=== PATIENT | male | born 1940 | race Caucasian/White ===

== ENCOUNTER 2020-04-12 08:22 | Day surgery (SDC) | payer OTHER ==
--- NOTE | 2020-04-07 15:03 | RAD REPORT ---
EXAM DESCRIPTION: RAD - Chest Pa And Lat (2 Views) - 04/07/2020 2:51 pm CLINICAL HISTORY: pre op Chest pain. COMPARISON: No comparisons FINDINGS: Small calcified granuloma is present left lung base. The lungs are otherwise clear. The he art is normal in size. No displaced fractures.
[2020-04-07 15:22] LABS: Absolute Lymphocytes (CBC) 1.3 K/uL (0.7-4.9); Basophils % 0.9 % (0-1.3); Hematocrit 43.8 % (39.6-49.0); Lymphocytes % 13.8 % (15.3-44.8); MPV 10.4 fL (7.6-11.3); RBC Red Blood Cell Count 4.72 M/uL (4.33-5.43)
[2020-04-07 15:23] LABS: Potassium 4.3 mmol/L (3.5-5.1)
[~2020-04-12 08:22] MED LIST: AMPICILLIN SODIUM 2 GM in NA CHLORIDE 0.9% 100 ML IVPB SCH; Gentamicin Inj 160 MG in NA CHLORIDE 0.9% 100 ML IV SCH
[2020-04-12] MEDS ORDERED: GEMCITABINE HCL 1,000 MG in NA CHLORIDE 0.9% 26.3 ML IVPB ONE (08:45)
[2020-04-12] MEDS ORDERED: GEMCITABINE HCL IVPB ONE (08:45)
[2020-04-12] MEDS ORDERED: NA CHLORIDE 0.9% IVPB ONE (08:45)
[2020-04-12] MEDS ORDERED: NA CHLORIDE 0.9% 1,000 ML ONE ×2 (09:39→13:16)
[2020-04-12] MEDS ORDERED: LIDOCAINE 1% MPF 5 ML VIAL ONE (10:12)
[2020-04-12] MEDS ORDERED: propofoL 200 MG/20 ML VIAL IV ONE (10:12)
[2020-04-12] MEDS ORDERED: FENTANYL CITR 100 MCG/2 ML ONE ×2 (10:12→12:06)
[2020-04-12] MEDS ORDERED: ONDANSETRON 4 MG/2 ML VIAL ONE (10:13)
[2020-04-12] MEDS ORDERED: ROCURONIUM 50 MG/5 ML VIAL IV ONE (12:06)
[2020-04-12] MEDS ORDERED: EPHEDRINE SULF 50 MG/ML VIAL ONE (12:06)
[2020-04-12] MEDS ORDERED: GLYCOPYRROLATE 0.2 MG/ML SYR ONE ×2 (13:27)
[2020-04-12] MEDS ORDERED: NEOSTIGMINE 1 MG/ML -5 ML ONE (13:30)
[2020-04-12] MEDS ORDERED: OPIUM/BELLADONNA SUPPOS (30-16.2 MG) PR ONE (13:43)
[2020-04-12] MEDS ORDERED: PHENAZOPYRIDINE 100MG TAB PO ONE (13:48)
[2020-04-12] MEDS ORDERED: HYDROCODONE/APAP 5/325 MG TAB PO PRN (13:48)
[2020-04-12 13:59] LABS: Absolute Lymphocytes (CBC) 1.4 K/uL (0.7-4.9); Basophils % 0.6 % (0-1.3); Hematocrit 42.7 % (39.6-49.0); Lymphocytes % 14.9 % (15.3-44.8); MPV 10.1 fL (7.6-11.3); RBC Red Blood Cell Count 4.57 M/uL (4.33-5.43)
--- NOTE | 2020-04-12 15:31 | OP ---
Surgeon: ZAIN ODOM Preoperative Diagnosis: Bladder tumor, massive. 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 Principle Procedures: Cystoscopy and transurethral resection of a bladder tumor greater than 7-10 cm . Instillation of intravesical gemcitabine chemotherapy. Indication For Procedure: Mr. Kirkpatrick presented to the Urology Clinic after a period of gross hematur ia and was evaluated with cystoscopy revealing the presence of the left lateral wall bladder tumor. The ureteral orifice was not perceptible on that examination and he presents today for definitive man agement and resection of the bladder tumor as well as staging. Procedure In Detail: The patient was consented in the preoperative holding area before being transfe rred to the operative suite where general anesthesia was induced. He was given ampicillin and gentam icin IV antimicrobial prophylaxis, pneumo boots were provided for DVT prophylaxis. The patient was t hen placed in the lithotomy position, padded and secured to the table appropriately. His genitalia w ere prepped using Hibiclens and he was draped in standard fashion. The case was begun using urethral sounds to dilate the meatus and fossa navicularis to 30-Omani. I then was able to pass the 26-Fren ch resectoscope using the visual obturator via the urethra and into the bladder with ease. There wer e no urethral mucosal lesions noted other than a small frondular lesion within the prostatic urethra. The bladder was then entered and surveyed. The tumor was indeed massive involving the entire later al left lateral wall of the bladder. The ureteral orifice was not visible due to overgrowth of the t umor in that region. The tumor was much greater than 7-10 cm in diameter and extended from near the bladder neck to posterior from the trigone to the dome. As such, additionally there was significant neovascularization noted with massive blood vessels bulging within the bladder and feeding the tumor at the base near the bladder neck and trigone region. Resection was thus begun to attempt to debulk the tumor superficially, and after extensive debulking, which was sent as level 1 bladder resection, I then proceeded to further resect down to the base of the tumor more peripherally. This was sent as level 2 dissection using Ellik evacuation to remove the tumor pieces. Continued resection alternati ng with fulguration as necessary given the extensive bleeding from the frank-vascularized tumor was und ertaken. After over an hour and a half of resection with alternating Ellik evacuation of the tumor a nd blood clot from the bladder in order to maintain visualization, a superficial bladder perforation was noted posteriorly from the Ellik causing sucking of the mucosa into the scope and therefore disru pting it. As a result, while no fat was visible, to avoid absorption of a significant quantity of fl uid, the procedure was then limited to an additional 30 minutes. As a result, an additional level 3 resection of tumor was performed and sent for pathologic analysis before fulguration was performed to cease any active bleeding. All remaining tumor chips were removed from the bladder without any claudia tional Ellik evacuation after the perforation was noted, and in the end, the area was hemostatic and about half of the tumor inferiorly had been resected. The tumor in the opening of the ureteral orifi ce was not managed on this excursion. I then placed a 22-Omani [address] Carias catheter into his bladde r and decompressed the fluid and urine. I then instilled 2 g of gemcitabine in 50 cc normal saline i nto his decompress bladder to minimize tumor cell implantation and decrease extravasation into the ex travesical space of any tumor cells. The gemcitabine was then left intravesically and the catheter w as clamped, connected to a leg bag. The patient was then taken out of the lithotomy position, awaken ed from general anesthesia, transferred to a stretcher, and then transferred to the recovery room in good condition. Complications: Superficial bladder perforation where fat was not visible. Discharge Disposition: We will leave the intravesical gemcitabine for no more than 45 minutes to 1 h our and remove it if the patient becomes extensively symptomatic as we would like to avoid any bladde r spasms. Belladonna and opium suppository were provided per rectum for postoperative anesthetic. T he patient will then be discharged with a Carias catheter in place after the chemotherapy is evacuated , and he will maintain it for the next 5-7 days before voiding trial is planned in the clinic. He wi ll continue the levofloxacin antimicrobial therapy started yesterday. Subsequent followup discussion will take place in approximately 2 weeks once the pathology is available to discuss next steps with my clinical impression being this is indeed a muscle invasive tumor for which either a cystectomy or at minimum a bladder sparing approach will be required. USMAN/MODL Voice ID: [id number] Report ID: [id number]
[2020-04-12 15:43] VITALS: BP 172/63; TEMP 97; O2SAT 98
--- OUTSIDE RECORDS SUMMARY | 2020-04-13 03:38 | XMS REPORT | Continuity of Care Document ---
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, infarct, 7-17 Method i old old 00:00: st 00 SOB SOB Disease Active [place] (shortness (shortness 6-12 Me thodi of breath) of breath) 00:00: st 00 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 6-12 Method[facility] artery artery 00:00: st disease disease 00 Coronary Coronary Disease Active [place] artery artery 6-13 [facility] disease disease 00:00: st involving involving 00 fl[place]reau flandreau coronary coronary artery of artery of flandreau flandreau heart heart without without angina angina pectoris pectoris Bilateral Bilateral Disease Active 2015-03 [place] [facility] carotid carotid 2-13 Methodi artery artery 00:00: st stenosis stenosis 00 Coronary Coronary Disease Active 2015-03 [place] artery artery 04-16 Method[facility] disease disease 00:00: st involving involving 00 flandreau flandreau heart heart without without angina angina pectoris pectoris Coronary Coronary Disease Active 2015-03 [place] arterioscl arterioscl 03-12 Me [facility] erosis erosis 00:00: st 00 Essential Essential Disease Active 2015-03 [place] el[place] hypertensi hypertensi 03-12 Me thodi on on 00:00: st 00 Presence Presence Disease Active 2015-03 [place] of stent of stent 03-12 Method i in in 00:00: st coronary coronary 00 artery artery Peripheral Peripheral Disease Active 2015-03 [place] vascular vascular 03-12 Method i disease disease 00:00: st 00 Allergies, Adverse Reactions, Alerts Allergy Allergy Status Severity Reaction(s) Onset Inactive Treating Comm ents Source Name Type Date Date Clinician Clopidog Propensi Active 2015-03 Dorito n rel ty to 03-12 Methodi adverse 00:00: st reaction 00 s to drug Sulfa Propensi Active 2015-03 [place] (Sulfona ty to 03-12 Methodi mide adverse 00:00: st Antibiot reaction 00 ics) s to drug Sulfa Adverse Active Info Not [facility] Reaction Available [facility] Family History Family Member Diagnosis Comments Start Date Stop Date Source Natural father Heart attack [place] Caodaism Natural mother Cancer [facility] thodist Other Coronary artery [facility] ethodist disease Social History Social Habit Start Date Stop Date Quantity Comments Source Sex Assigned At [facility] ethodist Exposure to Not sure [place] Metho dist SARS-CoV-2 (event) Tobacco use and 2019-02-10 2019-02-10 Never used [facility] ethodist exposure 00:00:00 00:00:00 Alcohol intake 2019-02-10 2019-02-10 Current [facility] thodist 00:00:00 00:00:00 non-drinker of alcohol (finding) Smoking Status Start Date Stop Date Source Never smoker [place] Araidneis t Medications Ordered Filled Start Stop Current Ordering Indication Dosage Frequency Signature Comments Components Source Medication Medication Date Date Medication? Clinician (SIG) Name Name losartan-hy 2020-0 2021- Yes Bilateral 1{tbl} QD TAKE 1 [place] drochloroth 04-04 carotid TABLET BY Phillip iazide 00:00: 23:[address] (HYZAAR) 00 :00 disease DAILY 100-12.5 mg (HCC) per tablet metoprolol 2019-03 Yes Bilateral TAKE 1 [place] tartrate 2-07 carotid TABLET(50 Met h[place] (LOPRESSOR) 00:00: artery MG) BY st 50 mg 00 disease MOUTH tablet (HCC) TWICE DAILY simvastatin 2019-03 Yes TAKE 1 [place] (ZOCOR) 20 1-16 TABLET(20 Meth lino mg tablet 00:00: MG) BY st 00 MOUTH EVERY NIGHT losartan-hy 2019-03- No Bilateral 1{tbl} QD TAKE 1 [place] drochloroth 1-06 02- carotid TABLET BY Methodi iazide 00:00: 00:[address] (HYZAAR) 00 :00 disease DAILY 100-12.5 mg (HCC) per tablet metoprolol 2019- No Bilateral TAKE 1 [place] tartrate 9-10 12-07 carotid TABLET(50 Me thodi (LOPRESSOR) 00:00: 00:00 artery MG) BY s t 50 mg 00 :00 disease MOUTH tablet (HCC) TWICE DAILY simvastatin 2019- No TAKE 1 [place] (ZOCOR) 20 8-21 11-16 TABLET(20 Met hodi mg tablet 00:00: 00:00 MG) BY st 00 :00 MOUTH EVERY NIGHT losartan-hy 2019- No Bilateral 1{tbl} QD TAKE 1 [place] drochloroth 8- 11-06 carotid TABLET BY Methodi iazide 00:00: 00:[address] (HYZAAR) 00 :00 disease DAILY 100-12.5 mg (HCC) per tablet metoprolol 2019- No Bilateral TAKE 1 [place] tartrate 6-15 09-10 carotid TABLET(50 Me thodi (LOPRESSOR) 00:00: 00:00 artery MG) BY s t 50 mg 00 :00 disease MOUTH tablet (HCC) TWICE DAILY simvastatin 2019- No TAKE 1 [place] (ZOCOR) 20 5-26 08-21 TABLET(20 Met hodi mg tablet 00:00: 00:00 MG) BY st 00 :00 MOUTH EVERY NIGHT losartan-hy 2019- No Bilateral 1{tbl} QD TAKE 1 [place] drochloroth 5-08 08-03 carotid TABLET BY Methodi iazide 00:00: 00:[address] (HYZAAR) 00 :00 disease DAILY 100-12.5 mg (HCC) per tablet metoprolol 2019- No Bilateral TAKE 1 Luis A tartrate 3-19 06-15 carotid TABLET(50 Me thodi (LOPRESSOR) 00:00: 00:00 artery MG) BY s t 50 mg 00 :00 disease MOUTH tablet (HCC) TWICE DAILY simvastatin 2019- No TAKE 1 [place] el[place] (ZOCOR) 20 2- 05-26 TABLET(20 Met hodi MG tablet 00:00: 00:00 MG) BY st 00 :00 MOUTH EVERY NIGHT losartan-hy 2019- No Bilateral 1{tbl} QD TAKE 1 Luis A drochloroth 2- 05-08 carotid TABLET BY Methodi iazide 00:00: 00:[address] (HYZAAR) 00 :00 disease DAILY 100-12.5 mg (HCC) per tablet metoprolol 2018-03- No Bilateral TAKE 1 Luis A tartrate 2- 03-19 carotid TABLET(50 Me thodi (LOPRESSOR) 00:00: 00:00 artery MG) BY s t 50 mg 00 :00 disease MOUTH tablet (HCC) TWICE DAILY aspirin 2018-03 Yes Take 1 Luis A (ECOTRIN) 2-10 tablet Methodi 81 MG 10:18: every day st enteric 25 by oral coated route. tablet multivit-mi 2018-03 Yes One Tab [place] n-FA-lycope 2-10 Daily Methodi n-lutein 10:18: st (CENTRUM 25 SILVER) 0.4-300-250 mg-mcg-mcg tablet magnesium 2018-03 Yes Take 1 [place] 250 mg 2-10 tablet as Methodi tablet 10:18: needed by st 25 oral route. famotidine- 2018-03 Yes As Needed [place] Ca carb-mag 2-10 Methodi hydrox 10:18: st (PEPCID 25 COMPLETE) 10-800-165 mg chewable tablet acetaminoph 2018-03 Yes 500mg Take 500 [place] en 2-10 mg by Methodi (TYLENOL) 10:18: mouth as st 500 MG 25 needed for tablet mild pain. calcium 2018-03 Yes Chew. Luis A carbonate 2-10 Methodi (calcium 10:18: st carbonate) 25 400 mg (1,000 mg) tablet,chew able simvastatin 2018-03- No TAKE 1 [place] (ZOCOR) 20 2-05-01 TABLET(20 Met hodi MG tablet 00:00: 00:00 MG) BY st 00 :00 MOUTH EVERY NIGHT losartan-hy 2018-03- No Bilateral 1{tbl} QD TAKE 1 [place] drochloroth 03-15 02 carotid TABLET BY Methodi iazide 00:00: 00:[address] (HYZAAR) 00 :00 disease DAILY 100-12.5 mg (HCC) per tablet azelastine Yes [place] (ASTELIN) 610 Methodi 137 mcg 00:00: st (0.1 %) 00 nasal spray montelukast Yes TK 1 T PO [place] (SINGULAIR) 528 QD Methodi 10 mg 00:00: st tablet 00 metFORMIN Yes TK 1 T PO [place] (GLUCOPHAGE 4-16 BID WAC Metho di ) 500 mg 00:00: st tablet 00 Metformin Metformin Yes Pj [address] [facility] [address] HCl HCl 1-17 [place] with a [facility] - 00:00: meal [facility] VIAGRA 50 2015-03 Yes TK 1 T PO [place] [facility] mg tablet 1-20 QD Methodi 00:00: st 00 Flonase Flonase Yes Pj 1 spray [address] [facility] each [facility] - nostril [facility] Nasacort Nasacort Yes Pj [address] [facility] Allergy Allergy [place] each [facility] - 24HR 24HR nostril [facility] Simvastatin Simvastatin Yes Pj [address] [facility] [address] [place] in the [facility] - evening [facility] ent Clinics Centrum Centrum Yes Pj not [facility] Silver Silver [place] defined [facility] Tums Tums Yes Pj [address] [facility] [address] [place] [facility] Aspir-81 Aspir-81 Yes Pj [address] [facility] [facility] Loratadine Loratadine Yes Pj [address] [place] [facility] Pepcid Pepcid Yes Pj 1 tablet [facility] Complete Complete [place] as needed [facility] - [facility] Metoprolol Metoprolol Yes Pj [address] Tartrate Tartrate [place] with food L ukes - [facility] Losartan Losartan Yes Pj [address] Potassium-H Potassium-H [place] [facility] Azelastine Azelastine Yes Pj [address] HCl HCl [place] [facility] Ipratropium Ipratropium Yes Pj [address] [facility] [facility] [employer] [place] in each [facility] - nostril [facility] Metformin Metformin Yes Pj TAKE [address] HCl HCl [place] TABLET BY [facility] MEAL [facility] Clinics Immunizations Ordered Filled Immunization Date Status Comments [facility] e Immunization Name Name PFIZER COVID-19 2020-03-23 Completed Luis A Rao ethodist MRNA VACCINATION 00:00:00 FluAD FluAD 2018-12-[address] [facility]00 [facility] Vital Signs Vital Name Observation Time Observation Value Comments Source Systolic blood 2020-02-09 09:19:00 193 mm[Hg] Martin n Caodaism pressure Diastolic blood 2020-02-09 09:19:00 79 mm[Hg] Bobbi ferguson Caodaism pressure Heart rate 2020-02-09 09:19:00 57 /min Luis A Stringer Body height 2020-02-09 09:19:00 182.9 cm Luis A Stringer Body weight 2020-02-09 09:19:00 99.338 kg Luis A Stringer BMI 2020-02-09 09:19:00 29.70 kg/m2 Luis A Stringer Procedures This patient has no known procedures. Plan of Care Planned Activity Planned Date Details Comments Source Future Scheduled 2020-04-13 COVID-19 VACCINE (2 of [place] Ca[facility] Test 00:00:00 2 - Pfizer series) [code = COVID-19 VACCINE (2 of 2 - Pfizer series)] Future Scheduled 2019-10-03 INFLUENZA VACCINE [place] [facility] Test 00:00:00 [code = INFLUENZA VACCINE] Future Scheduled 2004-06-26 65+ PNEUMOCOCCAL [place] Caodaism Test 00:00:00 VACCINE (1 of 1 - PPSV23) [code = 65+ PNEUMOCOCCAL VACCINE (1 of 1 - PPSV23)] Future Scheduled 1989-06-26 SHINGLES VACCINES (#1) [place] [facility] Test 00:00:00 [code = SHINGLES VACCINES (#1)] Future Scheduled 1949-06-26 DIABETES: RETINAL EYE [place] [facility] Test 00:00:00 EXAM [code = DIABETES: RETINAL EYE EXAM] Future Scheduled 1949-06-26 DIABETIC FOOT EXAM [place] [facility] Test 00:00:00 [code = DIABETIC FOOT EXAM] Future Scheduled 1949-06-26 URINE MICROALBUMIN [place] [facility] Test 00:00:00 [code = URINE MICROALBUMIN] Encounters Start End Encounter Admission Attending Care Care Encounter Source Date/Time Date/Time Type Type Clinicians Facility Department ID 2020-03-28 2020-03-28 [id number] 2020-03-23 2020-03-23 Outpatient [facility] [id number] 084 [place] 00:00:00 00:00:[address] 2020-03-22 2020-03-22 [facility] [id number] [facility] 2020-03-22 2020-03-22 [facility] [id number] [facility] 2020-02-25 2020-02-25 Outpatient [facility] [id number] [facility] 2020-02-15 2020-02-15 [facility] [id number] [facility] 2020-02-09 2020-02-09 Outpatient [facility] [id number] 994 [place] 00:00:00 00:00:[address] ZU[address] 2019-12-21 2019-12-21 Outpatient [facility] [id number] [facility] 2019-12-14 2019-12-14 [facility] [id number] [facility]00 [facility] 2019-09-17 2019-09-17 [facility] [id number] 08:15:00 08:15:00 [employer] - Absolute Antibody [facility] Medicine Outpati ent Clinics 2019-08-14 2019-08-14 Outpatient [facility] [id number] 614 [place] 00:00:00 00:00:00 ZULEYMA [address] 2019-06-18 2019-06-18 [facility] [id number] 09:15:00 09:15:00 [employer] - Drive [facility] Clinics 2019-03-19 2019-03-19 [facility] [id number] 08:45:00 08:45:00 t [employer] - Absolute Antibody [facility] Clinics 2019-03-11 2019-03-11 [facility] [id number] 16:48:00 16:48:00 t [employer] s - Absolute Antibody [facility] Out[facility] Clinics 2018-12-16 2018-12-16 [facility] [id number] 08:45:00 08:45:00 t [employer] - Absolute Antibody [facility] Medicine Outpati ent Clinics 2018-09-16 2018-09-16 [facility] [id number] 09:45:00 09:45:00 t [employer] - Absolute Antibody [facility] Out[facility] Clinics 2018-07-08 2018-07-08 [facility] [id number] 13:15:00 13:15:00 t [employer] s - Drive [facility] Medicine Outpati ent Clinics 2018-06-17 2018-06-17 [facility] [id number] 10:45:00 10:45:00 t [employer] s - Drive [facility] Outpat[facility] ent Clinics 2018-04-21 2018-04-21 [facility] [id number] 10:30:00 10:30:00 t [employer] - Absolute Antibody [facility] Medicine Outpati ent Clinics 2018-03-20 2018-03-20 [facility] [id number] 09:00:00 09:00:00 t [employer] - Absolute Antibody [facility] Outpati ent Clinics 2018-03-05 2018-03-05 [facility] [id number] 13:00:00 13:00:00 t [employer] - Absolute Antibody [facility] Medicine Outpati ent Clinics 2017-12-17 2017-12-17 [facility] [id number] 10:15:00 10:15:00 t [employer] s - Absolute Antibody [facility] Outpati ent Clinics 2017-09-17 2017-09-17 [facility] [id number] 09:00:00 09:00:00 t [employer] s - Absolute Antibody [facility] Medicine Outpati ent Clinics 2017-06-18 2017-06-18 [facility] [id number] 09:00:00 09:00:00 t [employer] s - Absolute Antibody [facility] Medicine Outpati ent Clinics Results This patient has no known results.
--- OUTSIDE RECORDS SUMMARY | 2020-04-13 03:38 | XMS REPORT | Clinical Summary ---
:1940 Author Organization [facility] Address [address] [place] [address] Care Team Providers Name Role Phone Pj Dubois Primary Care Provider [phone] Allergies Active Allergy Reactions Severity Noted Date Comments Clopidogrel 01/11/2016 Sulfa (Sulfonamide Antibiotics) 6 Medications Medication Sig Dispensed Refills Start Date End Date Status VIAGRA 50 mg tablet TK 1 T PO QD 6 01/22/2016 Active aspirin (ECOTRIN) 81 Take 1 0 Active MG enteric coated tablet every tablet day by oral route. [id number]-[id number] One Tab 0 Active pen-lutein (CENTRUM Daily SILVER) 0.4-300-250 mg-mcg-mcg tablet magnesium 250 mg Take 1 0 Act froy tablet tablet as needed by oral route. famotidine-Ca As Needed 0 Active carb-mag hydrox (PEPCID COMPLETE) 10-800-165 mg chewable tablet acetaminophen Take 500 mg 0 Acti ve (TYLENOL) 500 MG by mouth as tablet needed for mild pain. calcium carbonate Chew. 0 Ac tive (calcium carbonate) 400 mg (1,000 mg) tablet,chewable azelastine (ASTELIN) 0 08/11/2018 Active 137 mcg (0.1 %) nasal spray metFORMIN TK 1 T PO 2 06/17/2018 Active (GLUCOPHAGE) 500 mg BID WAC tablet montelukast TK 1 T PO QD 11 07/29/2018 Acti ve (SINGULAIR) 10 mg tablet simvastatin (ZOCOR) TAKE 1 90 tablet 0 01/18/2020 Active 20 mg tablet TABLET(20 MG) BY MOUTH EVERY NIGHT metoprolol tartrate TAKE 1 180 tablet 0 02/08/2020 Active (LOPRESSOR) 50 mg TABLET(50 tabletIndications: MG) BY MOUTH Coronary artery TWICE DAILY disease involving [place] coronary artery of [place] heart without angina pectoris, Essential hypertension, SOB (shortness of breath), Bilateral carotid artery disease (HCC) losartan-hydrochloro TAKE 1 90 tablet 0 04/04/2020 04/04/19 22 Active thiazide (HYZAAR) TABLET BY 100-12.5 mg per MOUTH DAILY tabletIndications: Coronary artery disease involving [place] coronary artery of [place] heart without angina pectoris, Essential hypertension, SOB (shortness of breath), Bilateral carotid artery disease (HCC) losartan-hydrochloro TAKE 1 90 tablet 0 01/13/2019 04/13/19 20 Discontinued thiazide (HYZAAR) TABLET BY 100-12.5 mg per MOUTH DAILY tabletIndications: Coronary artery disease involving [place] coronary artery of [place] heart without angina pectoris, Essential hypertension, SOB (shortness of breath), Bilateral carotid artery disease (HCC) simvastatin (ZOCOR) TAKE 1 90 tablet 0 02/02/2019 0 Discontinued 20 MG tablet TABLET(20 MG) BY MOUTH EVERY NIGHT metoprolol tartrate TAKE 1 180 tablet 0 02/23/2019 05/21/19 20 Discontinued (LOPRESSOR) 50 mg TABLET(50 tabletIndications: MG) BY MOUTH Coronary artery TWICE DAILY disease involving [place] coronary artery of [place] heart without angina pectoris, Essential hypertension, SOB (shortness of breath), Bilateral carotid artery disease (HCC) losartan-hydrochloro TAKE 1 90 tablet 0 04/13/2019 07/10/19 20 Discontinued thiazide (HYZAAR) TABLET BY 100-12.5 mg per MOUTH DAILY tabletIndications: Coronary artery disease involving [place] coronary artery of [place] heart without angina pectoris, Essential hypertension, SOB (shortness of breath), Bilateral carotid artery disease (HCC) simvastatin (ZOCOR) TAKE 1 90 tablet 0 05/01/2019 0 Discontinued 20 MG tablet TABLET(20 MG) BY MOUTH EVERY NIGHT metoprolol tartrate TAKE 1 180 tablet 0 05/21/2019 08/17/19 20 Discontinued (LOPRESSOR) 50 mg TABLET(50 tabletIndications: MG) BY MOUTH Coronary artery TWICE DAILY disease involving [place] coronary artery of [place] heart without angina pectoris, Essential hypertension, SOB (shortness of breath), Bilateral carotid artery disease (HCC) losartan-hydrochloro TAKE 1 90 tablet 0 07/10/2019 10/05/19 20 Discontinued thiazide (HYZAAR) TABLET BY 100-12.5 mg per MOUTH DAILY tabletIndications: Coronary artery disease involving [place] coronary artery of [place] heart without angina pectoris, Essential hypertension, SOB (shortness of breath), Bilateral carotid artery disease (HCC) simvastatin (ZOCOR) TAKE 1 90 tablet 0 07/28/2019 0 Discontinued 20 mg tablet TABLET(20 MG) BY MOUTH EVERY NIGHT metoprolol tartrate TAKE 1 180 tablet 0 08/17/2019 11/12/19 20 Discontinued (LOPRESSOR) 50 mg TABLET(50 tabletIndications: MG) BY MOUTH Coronary artery TWICE DAILY disease involving [place] coronary artery of [place] heart without angina pectoris, Essential hypertension, SOB (shortness of breath), Bilateral carotid artery disease (HCC) losartan-hydrochloro TAKE 1 90 tablet 0 10/05/2019 01/08/20 20 Discontinued thiazide (HYZAAR) TABLET BY 100-12.5 mg per MOUTH DAILY tabletIndications: Coronary artery disease involving [place] coronary artery of [place] heart without angina pectoris, Essential hypertension, SOB (shortness of breath), Bilateral carotid artery disease (HCC) simvastatin (ZOCOR) TAKE 1 90 tablet 0 10/23/2019 0 Discontinued 20 mg tablet TABLET(20 MG) BY MOUTH EVERY NIGHT metoprolol tartrate TAKE 1 180 tablet 0 11/12/2019 02/08/20 20 Discontinued (LOPRESSOR) 50 mg TABLET(50 tabletIndications: MG) BY MOUTH Coronary artery TWICE DAILY disease involving [place] coronary artery of [place] heart without angina pectoris, Essential hypertension, SOB (shortness of breath), Bilateral carotid artery disease (HCC) losartan-hydrochloro TAKE 1 90 tablet 0 01/08/2020 04/04/19 21 Discontinued thiazide (HYZAAR) TABLET BY 100-12.5 mg per MOUTH DAILY tabletIndications: Coronary artery disease involving [place] coronary artery of [place] heart without angina pectoris, Essential hypertension, SOB (shortness of breath), Bilateral carotid artery disease (HCC) Active Problems Problem Noted Date Myocardial infarct, old 09/17/2017 SOB (shortness of breath) 08/13/2017 Bilateral carotid artery disease 08/13/2017 Coronary artery disease involving [place] coronary latanya ry of [place] heart 08/14/2016 without angina pectoris Bilateral carotid artery stenosis 02/14/2016 Coronary artery disease involving [place] heart without angina pectoris 02/14/2016 Coronary arteriosclerosis 01/11/2016 Essential hypertension 01/11/2016 Presence of stent in coronary artery 01/11/2016 Peripheral vascular disease 01/11/2016 Encounters Date Type Specialty Care Team Description 04/08/2020 Telephone Cardiology Alexy Whitmore, Cardiac Vladimir arance (Dr. MD Alexy Whitmore) 04/04/2020 Refill Cardiology Alexy Whitmore, Med Refill 03/23/2020 Clinical Support Internal Medicine Encoun ter for immunization (P rimary Dx) 03/23/2020 Travel 02/09/2020 Office Visit Cardiology lAexy Whitmore, Coronary ar amos disease involving [place] coronary artery of [place] heart without angina pectoris (Primary Dx); Presence of chuck nt in coronary artery; Bilateral carot id artery disease, unspecified type (HCC) 02/07/2020 Refill Cardiology Alexy Whitmore, Med Refill 01/18/2020 Refill Cardiology Alexy Whitmore, Med Refill 01/08/2020 Refill Cardiology Alexy Whitmore, Med Refill 11/12/2019 Refill Cardiology Alexy Whitmore, Med Refill 10/23/2019 Refill Cardiology Alexy Whitmore, Med Refill 10/05/2019 Refill Cardiology Alexy Whitmore, Med Refill 08/17/2019 Refill Cardiology Alexy Whitmore, Med Refill 08/14/2019 Telemedicine Cardiology Alexy Whitmore, Coronary ar amos disease involving [place] coronary artery of [place] heart without angina pectoris (Primary Dx); Presence of chuck nt in coronary artery; Bilateral carot id artery stenosis 08/07/2019 Travel 07/27/2019 Refill Cardiology Alexy Whitmore, Med Refill 07/10/2019 Refill Cardiology Alexy Whitmore, Med Refill 05/21/2019 Refill Cardiology Alexy Whitmore, Med Refill 05/01/2019 Refill Cardiology Alexy Whitmore, Med Refill 04/12/2019 Refill Cardiology Alexy Whitmore, Med Refill MD after 04/12/2019 Immunizations Name Administration Dates Next Due PFIZER COVID-19 MRNA VACCINATION 03/23/2020 021 Surgical History Surgery Date Site/Laterality Comments APPENDECTOMY CAROTID ENDARTERECTOMY TONSILLECTOMY STENT Medical History Medical History Date Comments Hypertension PVD (peripheral vascular disease) (HCC) Family History Medical History Relation Name Comments Heart attack Father Cancer Mother Coronary artery disease Other Family Hx Relation Name Status Comments Father Mother Other Family Hx Sister Alive Social History Tobacco Use Types Packs/Day Years Used Date Never Smoker Smokeless Tobacco: Never Used Alcohol Use Drinks/Week oz/Week Comments No Sex Assigned at Date Recorded Male 08/12/2018 6:04 AM CDT Job Start Date Occupation Industry Not on file Not on file Not on file COVID-19 Exposure Response Date Recorded In the last month, have you been in contact with No / Unsure 03/23/2020 9:42 AM VAULT TELLER someone who was confirmed or suspected to have Coronavirus / COVID-19? Last Filed Vital Signs Vital Sign Reading Time Taken Comments Blood Pressure 193/79 02/09/2020 9:19 AM VAULT TELLER Pulse 57 02/09/2020 9:19 AM VAULT TELLER Temperature - - Respiratory Rate - - Oxygen Saturation - - Inhaled Oxygen Concentration - - Weight 99.3 kg (219 lb) 02/09/2020 9:19 AM VAULT TELLER Height 182.9 cm (6') 02/09/2020 9:19 AM VAULT TELLER Body Mass Index 29.7 02/09/2020 9:19 AM VAULT TELLER Plan of Treatment Date Type Specialty Care Team Description 04/18/2020 Clinical Support Internal Medicine 08/09/2020 Office Visit Cardiology lAexy Whitmore MD [address] [phone] Health Maintenance Due Date Last Done Comments DIABETES: RETINAL EYE EXAM [birth year]26/1950 DIABETIC FOOT EXAM 06[birth year]26/1950 URINE MICROALBUMIN 06/26/1949 SHINGLES VACCINES (#1) 06/26/1989 65+ PNEUMOCOCCAL VACCINE (1 of 1 - PPSV23) 06/26/2004 INFLUENZA VACCINE 10/03/2019 12/16/2018 COVID-19 VACCINE (2 of 2 - Pfizer series) 04/13/20202020 Results Not on fileafter 04/12/2019 Advance Directives For more information, please contact: [phone] Type Date Recorded Patient Functional Tester Explanati on Advance Directives, Living Will and Medical Power of Career Resource Technician
== END 2020-04-12 16:20 | disposition home or self-care (01) ==
LOC: OR 08:22
PROVIDERS: ATTEND Urology
PROC: 3E0K705 Introduction of Other Antineoplastic into Genitourinary Tract, Via Natural or Artificial Opening (ICD-10-PCS; 2020-04-12)
PROC: 0TBB8ZX Excision of Bladder, Via Natural or Artificial Opening Endoscopic, Diagnostic (ICD-10-PCS; principal; 2020-04-12 10:00)
DX: D09.0 Carcinoma in situ of bladder (principal); R31.0 Gross hematuria; I10 Essential (primary) hypertension; E78.00 Pure hypercholesterolemia, unspecified; I25.2 Old myocardial infarction; N40.1 Benign prostatic hyperplasia with lower urinary tract symptoms; Z20.822 Contact with and (suspected) exposure to COVID-19
CPT/HCPCS: 93005; 85025 ×2; 80048; 36415 ×2; 82947 ×2; 88307; 85730; 71046; 52240; 51720; U0002; J2704; J1580; J3010 ×2; J2710; J9201; J7030 ×2; J2405; J0290; 81001; 87086; 87088; 88305

== ENCOUNTER 2020-05-17 07:28 | Day surgery (SDC) | payer OTHER ==
[2020-05-17] MEDS ORDERED: Gentamicin Inj 240 MG in NA CHLORIDE 0.9% 100 ML IV SCH (08:00)
[2020-05-17] MEDS ORDERED: NA CHLORIDE 0.9% 1,000 ML ONE (08:10)
[2020-05-17] MEDS: AMPICILLIN SODIUM 2 GM in NA CHLORIDE 0.9% 100 ML IVPB SCH ×2 (09:11→09:20)
[2020-05-17] MEDS ORDERED: propofoL 200 MG/20 ML VIAL IV ONE (09:12)
[2020-05-17] MEDS ORDERED: FENTANYL CITR 100 MCG/2 ML ONE (09:12)
[2020-05-17] MEDS ORDERED: LIDOCAINE 1% MPF 5 ML VIAL ONE (09:13)
[2020-05-17] MEDS ORDERED: KETOROLAC 30 MG/ML INJ ONE (09:41)
[2020-05-17] MEDS ORDERED: EPHEDRINE SULF 50 MG/ML VIAL ONE (09:47)
[2020-05-17] MEDS ORDERED: NS 0.9% VIAL 10 ML ONE ×2 (09:47→09:59)
[2020-05-17] MEDS ORDERED: ROCURONIUM 50 MG/5 ML VIAL IV ONE (09:48)
[2020-05-17] MEDS ORDERED: Phenylephrine HCl 10 MG/ML 1 ML VIAL ONE (09:59)
[2020-05-17] MEDS ORDERED: GLYCOPYRROLATE 0.2 MG/ML SYR ONE ×2 (10:08→10:12)
[2020-05-17] MEDS ORDERED: NEOSTIGMINE 1 MG/ML -5 ML ONE (10:09)
[2020-05-17] MEDS ORDERED: PHENAZOPYRIDINE 100MG TAB PO ONE (11:00)
[2020-05-17] MEDS ORDERED: HYDROCODONE/APAP 5/325 MG TAB PO PRN (11:00)
[2020-05-17] MEDS ORDERED: OPIUM/BELLADONNA SUPPOS (30-16.2 MG) PR ONE (11:07)
--- NOTE | 2020-05-17 12:16 | OP ---
Surgeon: ZAIN ODOM Preoperative Diagnosis: Left lateral wall bladder tumor greater than 7 cm. Postoperative Diagnosis: Left lateral wall bladder tumor greater than 7 cm. Principle Procedures: 1.Cystoscopy. 2.Transurethral resection of a bladder tumor greater than 5 cm. 3.Cold cup biopsies of the base of the tumor. Indication For Procedure: Mr. Kirkpatrick is an 79-year-old gentleman, who underwent prior partial resect ion of a bladder tumor that was extensively vascular and bled extensively during the procedure. Foll owing the last procedure, he was given intravesical gemcitabine chemotherapy and was successfully dis charged home without complication. His pathology did not reveal any invasive tumor and so he returns today for restaging TURBT and completion resection. Procedure In Detail: The patient was consented in the preoperative holding area before being transfe rred to the operative suite where general anesthesia was induced. He was given gentamicin 240 mg kenney ng with ampicillin 2 g IV antimicrobial prophylaxis. Pneumo boots were provided for DVT prophylaxis. He was placed in the lithotomy position, padded and secured to the table appropriately. The case w as begun after his genitalia was cleansed using Hibiclens and he was draped in standard fashion. Usi ng urethral sounds to dilate the meatus and fossa navicularis to 30-Samoan, after which, a visual obt urator and a 26-Samoan resectoscope were used to traverse the urethra and into the bladder with ease. The bladder was again surveyed, and other than the left lateral wall where about half of the tumor had been previously resected and there were some fibrotic or potentially granulation type tissue albert ges from likely the chemotherapy treatment in the region of prior resection from the last time, the u pper 1/2 to 2/3 of the tumor was still present, though decreased in volume, likely due to chemotherap eutic effect. As a result, I used the resectoscope loop to began resecting the tumor superficially a nd down to the base of the tumor. Deeper base resections were also taken and sent for pathologic selena lysis. Prior to extensive fulguration at the base, cold cup biopsies were taken to ensure adequate s ampling without cautery artifact hopefully seen to determine if there is evidence of definitive muscu hudson propria invasion. Once this was completed, then completion fulguration of any bleeding vessels and resection of any residual nodular tumor tissue was then undertaken. In the end, about 1/5 of e bladder wall involving the left lateral wall from the ureteral orifice laterally and extending to t he dome was involved with tumor and had been resected. The bladder was decompressed and there was no ongoing bleeding. As a result, with all specimens removed, the bladder was left full and an 18-Fren ch urethral Carias catheter was placed with ease into his bladder with return of clear fluid. The cat heter was connected to a floor bed, and he was awakened from general anesthesia after being taken rodrigo n out of the lithotomy position. He was then transferred to a stretcher and then to the [facility] in good condition. Complications: None. Specimens Taken: 1.Bladder tumor equals superficial level. 2.Deeper resection of bladder tumor. 3.Base of tumor cold cup biopsies. Discharge Disposition: The patient will be treated with gemcitabine 2 g intravesically and 50 mL of normal saline over the course of 1-2 hours in PACU. Once the treatment is completed and he has been rotated by 1/4 turn every 15 minutes, the chemotherapy will be evacuated from his bladder, and he leticia l be discharged home with a catheter in place. Followup should be established on or Saturday in the Urology Clinic for a voiding trial, or alternatively, the patient may elect to remove the cath eter himself at home on morning 7 a.m. since his daughter is a medical practitioner. Should they elect to remove the catheter at home, he must void with ease by 1 p.m. or he should call the of [facility] for evaluation and possible catheter reinsertion. A prescription for Augmentin 875 mg x1 dose w as provided for him to take in the morning of the scheduled catheter removal. Followup should then b e established with me in the Urology Clinic within 10-14 days to discuss the results of the pathology and determine subsequent steps in management of his bladder cancer. WR/MODL Voice ID: [id number] Report ID: [id number]
[2020-05-17 12:20] VITALS: O2SAT 97
[2020-05-17] MEDS ORDERED: GEMCITABINE HCL 26.3 ML IVPB SCH (13:45)
[2020-05-17 18:17] VITALS: BP 167/76; TEMP 97.8
== END 2020-05-17 17:30 | disposition home or self-care (01) ==
LOC: OR 07:28
PROVIDERS: ATTEND Urology
PROC: 0TBB8ZX Excision of Bladder, Via Natural or Artificial Opening Endoscopic, Diagnostic (ICD-10-PCS; 2020-05-17)
PROC: 0TBB8ZX Excision of Bladder, Via Natural or Artificial Opening Endoscopic, Diagnostic (ICD-10-PCS; principal; 2020-05-17 09:30)
DX: C67.9 Malignant neoplasm of bladder, unspecified (principal); I10 Essential (primary) hypertension; N40.0 Benign prostatic hyperplasia without lower urinary tract symptoms; E78.00 Pure hypercholesterolemia, unspecified; F17.210 Nicotine dependence, cigarettes, uncomplicated; Z20.822 Contact with and (suspected) exposure to COVID-19
CPT/HCPCS: 87088; 87086; 82947 ×2; 88305; 88307 ×2; 52240; 52204; J2704; J2370; J1580; J3010; J2710; J9201; J7030; J0290; U0002

== ENCOUNTER 2020-10-18 09:35 | Day surgery (SDC) | payer OTHER ==
[2020-10-18] MEDS ORDERED: OPIUM/BELLADONNA SUPPOS (30-16.2 MG) PR ONE (10:12)
[2020-10-18] MEDS ORDERED: LIDOCAINE JELLY 2% 5 ML SYRINGE TOP ONE (10:12)
[2020-10-18 10:29] VITALS: BP 161/71; TEMP 98; O2SAT 97; BMI 29.0
[2020-10-18] MEDS ORDERED: GEMCITABINE HCL 26.3 ML IVPB ONE (10:30)
[2020-10-18 10:34] LABS: Urine Appearance CLEAR (Clear); Urine Bilirubin NEGATIVE (Negative); Urine Blood NEGATIVE (Negative); Urine Color YELLOW (Yellow); Urine Glucose NEGATIVE (Negative); Urine Protein NEGATIVE (Negative); Urine Specific Gravity <=1.005 (1.005-1.030); Urine Urobilinogen 0.2 mg/dL (0.2-1.0); Urine pH 6.5 (5.0-7.0)
[2020-10-18 10:35] LABS: Urine Microscopic Reflex NO UMIC
== END 2020-10-18 13:10 | disposition home or self-care (01) ==
LOC: DS 09:35
PROVIDERS: ATTEND Urology
DX: C67.9 Malignant neoplasm of bladder, unspecified (principal)
CPT/HCPCS: 81003; 96365; J9201

== ENCOUNTER 2022-06-28 07:44 | Day surgery (SDC) | payer OTHER ==
[2022-06-13 16:08] LABS: Absolute Lymphocytes (CBC) 1.1 K/uL (0.7-4.9); Hematocrit 43.5 % (39.6-49.0); MCV 94.8 fL (80-100); MPV 9.4 fL (7.6-11.3); RBC Red Blood Cell Count 4.59 M/uL (4.33-5.43)
--- NOTE | 2022-06-13 16:25 | RAD REPORT ---
EXAM DESCRIPTION: RAD - Chest Pa And Lat (2 Views) - 06/13/2022 4:17 pm CLINICAL HISTORY: Pre op pending cystoscopy with bladder biopsy COMPARISON: Chest Pa And Lat (2 Views) dated 04/07/2020 FINDINGS: Lines: None. Lungs: No evidence of edema or pneumonia. Pleural: No significant pleural effusions or pneumothorax. Cardiac: The heart size is within normal limits. Mediastinum: Within normal limits. Bones: No acute fractures. Other: None IMPRESSION: No acute cardiopulmonary disease.
[2022-06-13 16:36] LABS: Potassium 4.3 mEq/L (3.5-5.1)
--- NOTE | 2022-06-14 09:07 | EKG ---
Test Date: 2022-06-13 Test Time: 15:42:22 Clinical Operations Manager: ANGELY MEASUREMENT RESULTS: Intervals: Rate: 60 NM: 164 QRSD: 84 QT: 430 QTc: 430 Covel: P: 85 NM: 164 QRS: -11 T: 49 INTERPRETIVE STATEMENTS: Normal sinus rhythm Possible Inferior infarct, age undetermined Possible Anterior infarct, age undetermined Abnormal ECG Compared to ECG 04/07/2020 14:28:23 Ventricular premature complex(es) no longer present Myocardial infarct finding still present Electronically Signed On 06-14-22 09:04:17 CDT by Eduardo Pineda
[~2022-06-28 07:44] MED LIST changes: -AMPICILLIN SODIUM 2 GM in NA CHLORIDE 0.9% 100 ML IVPB SCH; -Gentamicin Inj 160 MG in NA CHLORIDE 0.9% 100 ML IV SCH; +Gentamicin Inj 240 MG in NA CHLORIDE 0.9% 100 ML IV SCH
[2022-06-28] MEDS ORDERED: NA CHLORIDE 0.9% 1,000 ML ONE (08:00)
[2022-06-28] MEDS ORDERED: AMPICILLIN SODIUM 2 GM/VIAL VIAL ONE (08:00)
[2022-06-28] MEDS ORDERED: propofoL 200 MG/20 ML VIAL IV ONE (08:54)
[2022-06-28] MEDS ORDERED: FENTANYL CITR 100 MCG/2 ML ONE (08:54)
[2022-06-28] MEDS ORDERED: LIDOCAINE 1% MPF 5 ML VIAL ONE (08:55)
[2022-06-28] MEDS ORDERED: ROCURONIUM 50 MG/5 ML VIAL IV ONE (08:55)
[2022-06-28] MEDS ORDERED: ONDANSETRON 4 MG/2 ML VIAL ONE (08:55)
[2022-06-28] MEDS ORDERED: dexAMETHasone 10 MG/ML VIAL ONE (09:50)
[2022-06-28] MEDS ORDERED: GLYCOPYRROLATE 0.2 MG/ML SYR ONE (10:17)
[2022-06-28] MEDS ORDERED: NEOSTIGMINE 1 MG/ML -10 ML VIAL ONE (10:17)
--- NOTE | 2022-06-28 10:33 | RAD REPORT ---
EXAM DESCRIPTION: RAD - Urography Retrograde - 06/28/2022 10:27 am CLINICAL HISTORY: STENT PLACEMENT COMPARISON: No comparisons FINDINGS: Total fluoro time: 0.6 minutes
[2022-06-28] MEDS ORDERED: PHENAZOPYRIDINE 100MG TAB PO ONE (11:02)
[2022-06-28 13:09] VITALS: BP 174/73; TEMP 97.1; O2SAT 98
--- NOTE | 2022-06-28 14:18 | OP ---
Surgeon: ZAIN ODOM Preoperative Diagnoses: 1. 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 2. Bladder lesion. 3. History of high-grade urothelial carcinoma of the bladder. Postoperative Diagnoses: 1. 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 2. Bladder lesion. 3. History of high-grade urothelial carcinoma of the bladder. Principal Procedures: 1. Cystoscopy with bladder biopsies x2 with fulguration. 2. Left ureteral orifice biopsy. 3. Left ureteroscopy. 4. Left retrograde pyelography. 5. Left externalized ureteral stent placement. 6. Urethral Carias catheter placement. Indication For Procedure: Mr. Kirkpatrick is a gentleman who has had resection of a bladder tumor with adjuvant BCG treatment, who has been free of any significant intravesical recurrence until most recent cystoscopy identified the presence of a low-grade appearing papillary urothelial neoplasm emanating from the left ureteral orifice. Additionally, there were subtle mucosal areas of change in the right lateral wall posteriorly. As a result, he underwent upper tract evaluation with a CT urogram, which was unremarkable and there was no evidence of metastatic disease. So he presents today for definitive evaluation and management of the lesion seen within the ureteral orifice and bladder. Procedure In Detail: The patient was consented in the preoperative holding area before being transferred to operative suite where general anesthesia was induced. He was given ampicillin and gentamicin IV antimicrobial prophylaxis and pneumo boots were provided for DVT prophylaxis. He was placed in the lithotomy position, padded and secured to the table appropriately. His genitalia were prepped with Hibiclens and he was draped in standard fashion. The case was begun using a 22-Swedish rigid cystoscope to traverse the urethra and into the bladder with ease. Of note, there was significant interdigitating lateral lobar hypertrophy with intravesical projection obscuring the ureteral orifices consistent with BPH. The bladder was markedly trabeculated throughout and there was a large wide-mouth dome diverticular formation. The bladder was surveyed in its entirety including using a 70 degree lens, and no significant papillary urothelial lesions were noted throughout the bladder. Emanating from the left ureteral orifice, was a previously observed papillary urothelial lesion that was very low-grade in appearance. Within the right lateral posterior wall of the bladder, there were 2 tiny areas about 2 mm each in diameter of subtle erythematous mucosal change. As a result, I utilized a cold cup biopsy forceps to grasp each of those lesions within the right lateral posterior wall of the bladder and sending them for pathologic analysis. I then utilized a Bugbee electrode in sterile water to fulgurate the base of these lesions, but there was minimal bleeding from them. I then turned my attention to the left ureteral orifice, which I was able to open using the tips of the cold cup biopsy forceps in order to grasp the papillary lesion and biopsy/remove it from within the ureteral orifice. Several biopsies were taken in that fashion to ensure the entirety of the lesion had been removed. Once no further visible tumor was emanating from the left ureteral orifice as visible cystoscopically, I then switched the cystoscope for a semi-rigid ureteroscope, which I navigated via the urethra into the left distal ureter and surveyed it as well as the UVJ and ureteral orifice for any residual sign of tumor. With none noted, I then injected Omnipaque via the lumen of the semi-rigid ureteroscope in order to perform a retrograde pyelogram. Left retrograde pyelography: Using an initially a 70:30 mixture of Omnipaque and saline followed by full- strength Omnipaque injected via the semi-rigid ureteroscope, contrast was noted to emanate up the distal into the mid and proximal ureter before entering the renal pelvis, which was somewhat hydronephrotic with pelviectasis, likely from the pressurized fluid associated with the biopsies and ureteroscopy. No filling defects were noted along the entirety of the course of the renal pelvis or the ureter or within the calyces. As a result, I surveyed the entirety of the distal ureter on the way out, and when no additional signs of mucosal change were noted, the ureteroscopy was completed. Before completely exiting the ureteral orifice, I passed a Sensor wire via the semi-rigid ureteroscope up the ureter into the renal pelvis as observed fluoroscopically. I then left the wire in place, removing the semi-rigid ureteroscope and passed a 5-Swedish ureteral access catheter over the wire coiling it within the renal pelvis. I then passed an 18-Swedish coude-tipped urethral Carias catheter into his bladder with ease placing 10 cc of sterile water in the balloon, and I internalized the 5-Swedish ureteral access catheter into the hub of the Carias catheter for closed system drainage, which was subsequently connected to a leg bag. The patient was then taken out of the lithotomy position, awakened from general anesthesia, transferred to a stretcher, and then transferred to the recovery room in good condition. Complications: None. Discharge Disposition: The 5-Swedish ureteral access catheter and Carias catheter will be removed simultaneously about 1.5 to 2 hours after entry into recovery to allow decompression of the system and minimize the risk of ureteral spasm. They will be removed together prior to his discharge home. Subsequent followup should be established in about 2 to 3 weeks' time to discuss the results of the pathology. USMAN/VENITA Voice ID: [id number] Report ID: [id number] MTDD
== END 2022-06-28 12:35 | disposition home or self-care (01) ==
LOC: OR 07:44
PROVIDERS: ATTEND Urology
PROC: 0TBB8ZX Excision of Bladder, Via Natural or Artificial Opening Endoscopic, Diagnostic (ICD-10-PCS; principal; 2022-06-28 09:30)
PROC: 0TB78ZX Excision of Left Ureter, Via Natural or Artificial Opening Endoscopic, Diagnostic (ICD-10-PCS; 2022-06-28 09:30)
DX: D41.4 Neoplasm of uncertain behavior of bladder (principal); N28.9 Disorder of kidney and ureter, unspecified; R33.9 Retention of urine, unspecified; Z85.51 Personal history of malignant neoplasm of bladder
CPT/HCPCS: 52204; 52354; 93005; 87088; 85025; 87086; 80048; 36415; 82947 ×2; 88305; 71046; 74420; J2704; J2710; J2001; J1580; J3010; J1100; J2405; J0290; J7030

== ENCOUNTER 2022-08-21 10:33 | Day surgery (SDC) | payer OTHER ==
[2022-08-06 15:09] LABS: Absolute Lymphocytes (CBC) 1.3 K/uL (0.7-4.9); Hematocrit 43.9 % (39.6-49.0); Lymphocytes % 16.1 % (15.3-44.8); MCV 94.5 fL (80-100); MPV 9.6 fL (7.6-11.3); RBC Red Blood Cell Count 4.65 M/uL (4.33-5.43)
[2022-08-06 15:30] LABS: Potassium 3.9 mEq/L (3.5-5.1)
[~2022-08-21 10:33] MED LIST changes: +Gentamicin Inj 220 MG in NA CHLORIDE 0.9% 100 ML IV SCH; -Gentamicin Inj 240 MG in NA CHLORIDE 0.9% 100 ML IV SCH
[2022-08-21] MEDS ORDERED: NA CHLORIDE 0.9% 1,000 ML ONE (11:05)
[2022-08-21] MEDS ORDERED: AMPICILLIN SODIUM 2 GM/VIAL VIAL ONE (11:05)
[2022-08-21] MEDS ORDERED: GEMCITABINE HCL 26.3 ML IS ONE (12:00)
[2022-08-21] MEDS ORDERED: dexAMETHasone 10 MG/ML VIAL ONE (14:20)
[2022-08-21] MEDS ORDERED: FENTANYL CITR 100 MCG/2 ML ONE (14:20)
[2022-08-21] MEDS ORDERED: LIDOCAINE 1% MPF 5 ML VIAL ONE (14:20)
[2022-08-21] MEDS ORDERED: propofoL 200 MG/20 ML VIAL IV ONE (14:20)
[2022-08-21] MEDS ORDERED: KETOROLAC 30 MG/ML INJ ONE (14:21)
[2022-08-21] MEDS ORDERED: ONDANSETRON 4 MG/2 ML VIAL ONE (14:21)
[2022-08-21] MEDS ORDERED: EPHEDRINE SULF 50 MG/ML VIAL ONE (14:46)
[2022-08-21] MEDS ORDERED: PHENAZOPYRIDINE 100MG TAB PO ONE ×2 (15:36→16:13)
[2022-08-21 16:01] VITALS: BP 175/75; TEMP 97.3; O2SAT 97
--- NOTE | 2022-08-21 16:26 | OP ---
Surgeon: ZAIN ODOM Preoperative Diagnoses: 1.Left distal ureteral lesion, low-grade urothelial carcinoma. 2.History of high-grade urothelial carcinoma of the bladder. 3.Status post induction intravesical gemcitabine chemotherapy. Postoperative Diagnoses: 1.Left distal ureteral lesion, low-grade urothelial carcinoma. 2.History of high-grade urothelial carcinoma of the bladder. 3.Status post induction intravesical gemcitabine chemotherapy. 4.Left ureteral orifice stricture/stenosis. Principle Procedures: 1.Cystoscopy. 2.Attempted/failed cannulation of left ureteral orifice and retrograde pyelography. Indication For Procedure: Mr. 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 He underwent an induction course of intravesical ge mcitabine chemotherapy and was on a surveillance protocol when he had development of a papillary urot helial lesion emanating from within his left ureteral orifice. This was biopsied revealing a low-gra de urothelial neoplasm suspicious for low-grade urothelial carcinoma, and he was counseled on the pot ential for upper tract progression or recurrence of the cancer and offered intrarenal gemcitabine ins tillation to treat the upper tract and decrease the risk of recurrence or progression. Procedure Note In Detail: The patient was consented in the preoperative holding area before being tr ansferred to the operative suite where general anesthesia was induced. He was given IV antimicrobial prophylaxis, and pneumo boots were provided for DVT prophylaxis. He was placed in the lithotomy pos ition, padded and secured to the table appropriately. His genitalia were prepped with Hibiclens and he was draped in standard fashion. The case was begun using a 22-English rigid cystoscope to traverse the urethra and into the bladder with ease. The bladder was decompressed of fluid and urine and the n refilled with sterile saline and surveyed in its entirety. There were no papillary mucosal lesions , foreign bodies, or stones noted throughout. The right ureteral orifice appeared slightly laterally displaced and partially previously resected but was patent and easily cannulated with the tip of the Sensor wire. The left ureteral orifice was visible in a more orthotopic position and unfortunately, attempts to cannulate it using the tip of a Sensor wire were unsuccessful. Trials were made using b oth a 30 degree and a 70 degree lens to ensure proper orifice identification and targeting of any act ual lumen within the ureteral orifice using the Sensor wire and then using a glidewire, without succe ss. Despite multiple attempts, I was unable to gain access into the left distal ureter via the urete ral orifice. As a result, I decompressed the patient's bladder of fluid and urine, and removed the s cope. He was then taken out of the lithotomy position, awakened from general anesthesia, transferred to a stretcher, and then transferred to the recovery room in good condition. Complications: None. Discharge Disposition: He will need to be scheduled as soon as possible for left percutaneous nephro stomy, preferably nephroureteral stent, placement. Ultimately, we desire to re-establish continuity of his left upper tract down into his bladder, which may be performed ideally with a nephroureteral s tent. If not, definitive surgical management to re-establish continuity may be required. Once acces s into his upper tracts is established especially that down into his distal ureter, the intrarenal ad ministration of chemotherapy may begin. USMAN/VENITA Voice ID: [id number] Report ID: [id number]
== END 2022-08-21 16:28 | disposition home or self-care (01) ==
LOC: OR 10:33
PROVIDERS: ATTEND Urology
PROC: BT1FZZZ Fluoroscopy of Left Kidney, Ureter and Bladder (ICD-10-PCS; 2022-08-21)
PROC: 0TF78ZZ Fragmentation in Left Ureter, Via Natural or Artificial Opening Endoscopic (ICD-10-PCS; principal; 2022-08-21 12:30)
DX: N28.9 Disorder of kidney and ureter, unspecified (principal); C67.9 Malignant neoplasm of bladder, unspecified; N13.5 Crossing vessel and stricture of ureter without hydronephrosis
CPT/HCPCS: 52005; 87088; 85025; 87086; 80048; 36415; 82947; J9201; J2704; J2001; J1580; J3010; J1100; J2405; J0290; J7030

== ENCOUNTER 2022-10-09 07:25 | Day surgery (SDC) | payer OTHER ==
[2022-10-01 13:23] LABS: Protime INR 1.16
[2022-10-01 13:31] LABS: Potassium 4.3 mEq/L (3.5-5.1)
[2022-10-01 14:31] LABS: Absolute Lymphocytes (CBC) 1.1 K/uL (0.7-4.9); Hematocrit 44.8 % (39.6-49.0); Lymphocytes % 9.4 % (15.3-44.8); MCV 94.6 fL (80-100); MPV 9.8 fL (7.6-11.3); Platelets 233 thou/uL (152-406); RBC Red Blood Cell Count 4.74 M/uL (4.33-5.43)
[2022-10-09] MEDS ORDERED: NA CHLORIDE 0.9% 1,000 ML ONE (07:55)
[2022-10-09] MEDS ORDERED: FENTANYL CITR 100 MCG/2 ML ONE (08:31)
[2022-10-09] MEDS ORDERED: LIDOCAINE 1% MPF 5 ML VIAL ONE (08:31)
[2022-10-09] MEDS ORDERED: propofoL 200 MG/20 ML VIAL IV ONE (08:31)
[2022-10-09] MEDS ORDERED: MIDAZOLAM HCL 2 MG/2 ML INJ ONE (08:31)
[2022-10-09] MEDS ORDERED: ONDANSETRON 4 MG/2 ML VIAL ONE (08:32)
[2022-10-09] MEDS: CEFAZOLIN SODIUM 2 GM/VIAL ONE ×2 (08:38→08:45)
[2022-10-09] MEDS ORDERED: EPHEDRINE SULF 50 MG/ML VIAL ONE (08:55)
[2022-10-09] MEDS ORDERED: ROCURONIUM 50 MG/5 ML VIAL IV ONE (09:02)
[2022-10-09] MEDS ORDERED: GLYCOPYRROLATE 0.2 MG/ML SYR ONE (09:31)
[2022-10-09] MEDS ORDERED: NEOSTIGMINE 1 MG/ML -10 ML VIAL ONE (09:37)
[2022-10-09 11:27] VITALS: BP 149/66; TEMP 96; O2SAT 97
--- NOTE | 2022-10-09 11:43 | RAD REPORT ---
EXAM DESCRIPTION: RAD - Urethrocystogrphy Retrograde - 10/09/2022 11:29 am CLINICAL HISTORY: LT STENT W BIOPSY COMPARISON: Urography Retrograde dated 06/28/2022 FINDINGS: Total fluoro time: 0.2 minutes
--- NOTE | 2022-10-09 13:24 | OP ---
Surgeon: ZAIN ODOM Preoperative Diagnoses: 1.Stenotic left ureteral orifice. 2.Status post left nephroureteral stent placement. 3.History of suspected left distal ureteral/ureteral orifice low-grade urothelial carcinoma. 4.History of urothelial carcinoma of the bladder. Postoperative Diagnoses: 1.Stenotic left ureteral orifice. 2.Status post left nephroureteral stent placement. 3.History of suspected left distal ureteral/ureteral orifice low-grade urothelial carcinoma. 4.History of urothelial carcinoma of the bladder. Principal Procedures: 1.Cystoscopy. 2.Left ureteroscopy. 3.Left ureteroscopic cold cup biopsy of the distal ureteral lesion. 4.Removal of left nephrostomy tube. 5.Internalization/placement of left 7-Congolese ureteral stent. Indication For Procedure: Mr. Kirkpatrick is an 82-year-old gentleman with a history of urothelial carcin nico of the bladder, who had undergone adjuvant therapy and eventually developed a papillary urothelia l neoplasm emanating from the left ureteral orifice that had some nuclear features potentially consis tent with a low-grade urothelial malignancy. He was counseled after that had been biopsied and remov ed about the potential for treatment of the entire upper tract to prevent recurrence of his bladder c ancer in his left upper tract with intravesical gemcitabine that would be allowed to reflux of a sten t, but before we could place the stent on his last operative excursion, he had evidence of stenosis o f the ureteral orifice, likely from the prior biopsy, and so a left nephroureteral stent had to be pl aced. He presents today for internalization of that left ureteral stent and removal of the nephrosto my tube component followed by definitive ureteroscopy. Procedure In Detail: The patient was consented in the preoperative holding area before being transfe rred to operative suite where general anesthesia was induced. He was given Ancef 2 g IV antimicrobia l prophylaxis, and pneumo boots were provided for DVT prophylaxis. He was placed in the lithotomy po sition, padded and secured to the table appropriately. His genitalia were prepped with Hibiclens and he was draped in standard fashion. The case was begun using a 22-Congolese rigid cystoscope to celso e the urethra and into the bladder with ease. Of note, significant prostatic urethral lateral lobar hypertrophy was again noted with an intravesical projecting median lobe. The bladder was markedly tr abeculated with some cellule formation. The nephroureteral stent coil was observed emanating from th e left ureteral orifice, and the coil of the stent was grasped using an alligator grasper, and after the nephrostomy tube was cut at the level of the skin at the flank, cleansed with alcohol, I then was able to deliver the nephroureteral stent to the meatus. At this point, I passed a Sensor wire up th e stent component of the nephroureteral stent coiling it within the putative upper pole of the left k idney. I then removed the nephroureteral stent remnant in its entirety from his collecting system le aving the Sensor wire in place. I then passed a dual-lumen catheter over the Sensor wire into the mi d ureter and performed a retrograde pyelogram. I confirmed each of the calyces of the kidney without significant extravasation from the nephrostomy tube site. As a result, I passed a Bentson guidewire into the collecting system alongside the safety Sensor wire and removed the dual-lumen catheter. I then surveyed the ureteral orifice cystoscopically, and it appeared widely patent from the nephrouret eral previously placed. As a result, I did not plan to resect the ureteral orifice at this time, not desiring to create additional reflux or scar tissue at that site. So, I then utilized a flexible ur eteroscope, passed over the Bentson guidewire all the way into the upper pole of his kidney. I then surveyed each of the calyces of the kidney, and I saw no evidence of any papillary mucosal lesion, fo reign body or stone. I then surveyed the renal pelvis down into the proximal and mid ureter without evidence of papillary mucosa lesion. Within the distal ureter laterally, I did see a sessile area of mucosal change that was somewhat nodular; so I utilized a ureteroscopic cold cup biopsy [facility] to grasp and biopsy that lesion. Two separate biopsies were taken and sent for pathologic analys is. There was minimal bleeding from the site, so no fulguration was required. I surveyed the remain rosalia of the distal ureter on the way out without any other significant lesions noted. I then back-rodrigo ded the cystoscope over the Sensor wire and then passed a 7-Congolese by 26 cm double-J ureteral stent w ith a coil observed fluoroscopically in the upper pole and 1 cystoscopically formed in his bladder. I then decompressed his bladder of fluid and urine and removed the cystoscope. I then took the patie nt out of the lithotomy position, he was awakened from general anesthesia, transferred to a stretcher , and then transferred to the recovery room in good condition. Complications: None. Discharge Disposition: He should resume his Xarelto on Saturday as long as his urine is not significan tly bloody, and subsequent followup may be established next week to begin the intravesical gemcitabin e and allow to reflux up the stent to decrease his risk of upper tract urothelial carcinoma progressi on or recurrence. We will follow up the results of the pathology of the ureteral biopsy taken today. Subsequent cystoscopic evaluation and repeat upper tract imaging will be planned in 3 months, and 6 months respectively. USMAN/VENITA Voice ID: [id number] Report ID: [id number]
== END 2022-10-09 11:20 | disposition home or self-care (01) ==
LOC: OR 07:25
PROVIDERS: ATTEND Urology
PROC: 0TB78ZX Excision of Left Ureter, Via Natural or Artificial Opening Endoscopic, Diagnostic (ICD-10-PCS; principal; 2022-10-09 09:00)
DX: N13.5 Crossing vessel and stricture of ureter without hydronephrosis (principal); N13.9 Obstructive and reflux uropathy, unspecified; C66.2 Malignant neoplasm of left ureter; C67.9 Malignant neoplasm of bladder, unspecified
CPT/HCPCS: 87088; 85025; 87086; 80048; 36415; 85610; 82947 ×2; 88305; 85730; 87077; 87186; 74450; 51610; 52354; 52332; J2704; J2710; J2001; J2250; J3010; J2405; J7030

== ENCOUNTER 2023-02-05 11:26 | Day surgery (SDC) | payer OTHER ==
--- NOTE | 2023-01-17 11:38 | RAD REPORT ---
EXAM DESCRIPTION: RAD - Chest Pa And Lat (2 Views) - 01/17/2023 11:22 am CLINICAL HISTORY: Pre op TURP COMPARISON: Chest Pa And Lat (2 Views) dated 06/13/2022; Chest Pa And Lat (2 Views) dated 04/07/2020 FINDINGS: Lines: None. Lungs: No evidence of edema or pneumonia. Pleural: No significant pleural effusions or pneumothorax. Cardiac: The heart size is within normal limits. Mediastinum: Within normal limits. Bones: No acute fractures. Other: None IMPRESSION: No acute cardiopulmonary disease.
[2023-01-17 11:59] LABS: Protime INR 1.18
[2023-01-17 12:03] LABS: Absolute Lymphocytes (CBC) 1.4 K/uL (0.7-4.9); Hematocrit 39.1 % (39.6-49.0); Lymphocytes % 15.5 % (15.3-44.8); MPV 9.3 fL (7.6-11.3); Platelets 259 thou/uL (152-406); RBC Red Blood Cell Count 4.07 M/uL (4.33-5.43)
[2023-01-17 12:20] LABS: Potassium 4.4 mEq/L (3.5-5.1)
--- NOTE | 2023-01-18 14:25 | EKG ---
Test Date: 2023-01-17 Test Time: 12:28:58 Chronic Specialist: KATEY MEASUREMENT RESULTS: Intervals: Rate: 58 MD: 162 QRSD: 86 QT: 422 QTc: 414 Dupont: P: 98 MD: 162 QRS: 43 T: 69 INTERPRETIVE STATEMENTS: Sinus bradycardia Cannot rule out Inferior infarct, age undetermined Abnormal ECG Compared to ECG 06/13/2022 15:42:22 Sinus rhythm no longer present Myocardial infarct finding still present Electronically Signed On 01-18-23 14:22:24 [employer] INTEGRATOR by Anjum Pantoja
[2023-02-05] MEDS ORDERED: NA CHLORIDE 0.9% 1,000 ML ONE ×3 (11:47→17:44)
[2023-02-05] MEDS ORDERED: Gentamicin Inj 200 MG in NA CHLORIDE 0.9% 100 ML IVPB ONE (13:00)
[2023-02-05] MEDS ORDERED: propofoL 200 MG/20 ML VIAL IV ONE (13:34)
[2023-02-05] MEDS ORDERED: ONDANSETRON 4 MG/2 ML VIAL ONE (13:34)
[2023-02-05] MEDS ORDERED: FENTANYL CITR 100 MCG/2 ML ONE ×2 (13:34→17:29)
[2023-02-05] MEDS ORDERED: LIDOCAINE 1% MPF 5 ML VIAL ONE (13:34)
[2023-02-05] MEDS: AMPICILLIN SODIUM 2 GM/VIAL VIAL ONE ×2 (15:42→15:48)
[2023-02-05] MEDS ORDERED: GLYCOPYRROLATE 0.2 MG/ML SYR ONE (17:37)
[2023-02-05] MEDS ORDERED: PHENAZOPYRIDINE 100MG TAB PO ONE (17:59)
[2023-02-05] MEDS ORDERED: CODEINE 30MG/APAP 300MG TAB PO PRN (17:59)
[2023-02-05] MEDS ORDERED: OXYBUTYNIN ER 5 MG TAB PO ONE (18:52)
[2023-02-05] MEDS ORDERED: CODEINE 30MG/APAP 300MG TAB ONE (18:52)
--- NOTE | 2023-02-05 18:55 | P.OP ---
Date of Service: 02/05/23 Preoperative diagnoses: Benign prostatic hypertrophy with lower urinary tract obstruction and symptoms Large volume incomplete emptying/urinary retention History of high risk urothelial carcinoma of the bladder s/p induction BCG Postoperative diagnoses: Same as above Principal procedures: Bipolar transurethral resection of the prostate -extensive > 125 g Indication for procedure: Mr. Kirkpatrick is an 82-year-old gentleman well-known to me with history of urothelial carcinoma of the bladder p induction BCG with questionable left dis ervin ureteral recurrence p induction intravesical to intrarenal gemcitabine p placement of a left ureteral stent, with large volume incomplete emptying observed repetitively despite maximal medical therapy with Flomax and finasteride for his LUTS due to BPH. As a result, he recognized the need for intervention and elected to proceed with bipolar TURP recognizing the volume of his prostate was significant and at the upper limit of normal, or slightly passed it, for the bipolar TURP procedure. Procedure note: The patient was consented in the preoperative holding area before being transferred to the operative suite where general anesthesia was induced. He was given ampicillin 2 g and gentamicin 200 mg IV antimicrobial prophylaxis, and pneumoboots were provided for DVT prophylaxis. He had stopped taking his Xarelto on Saturday in preparation for surgery today. He normally takes it twice a day. He had also stopped taking his baby aspirin last . He was placed in the lithotomy position, padded and secured to the table appropriately, and his genitalia was prepped with Hibiclens before being draped in standard fashion. The case was begun using the 26 Honduran resectoscope and visual obturator to traverse the urethra and into the bladder with ease. The previously observed intravesically projecting lateral lobar hypertrophy abutting the trigone was again observed. No papillary mucosal lesions, foreign bodies or stones were noted throughout. As a result, I began resection of the component of the lateral lobar hypertrophy that was abutting the ureteral orifice on the right side first, and I ended up resecting the proximal third of the bladder neck region of the prostate on the right side from posterior to anterior. Keeping the left ureteral orifice and direct vision, I similarly resected the intravesical component of the lateral lobe on the left side within the proximal third of the prostate gland from posterior to anterior. I then continued the resection of the midportion of the gland to the apex on the right side and did a similar resection on the left side. There was a significantly elevated median bar, but after initially visualizing the ureteral orifices at the beginning of the case, with his bladder distended, I found the more difficult to visualize; so before resecting that elevated median bar, I wanted to ensure I explained the ureteral orifices again; so I obtained hemostasis from the lateral lobar resection and removed all prostate chips before then with his bladder decompressed surveying again for the ureteral orifices. They were indeed proximal to the point of resection previously completed and to the elevated median bar still observed. So at this point, I then resected the elevated median bar down until it was even with the bladder neck. I then continued the resection of the median bar down to the level of the verumontanum. Because of the significant volume of his prostate tissue, despite all of the prior resection, additional prostate tissue continue to intrude into the urethral lumen, which was mostly observed following each Ilich evacuation of prostate chips and blood from within the bladder. As a result, continued resection was required bilaterally and anteriorly until eventually, the only residual tissue was the interdigitating tissue at the apex. So I again and stages resected the interdigitating tissue on the right than on the left and continually decompressed his bladder and reassessed until the tissue no longer interdigitated, and was only kissing in the apical midline at the level of the verumontanum. Reassessment of the prostatic fossa with the bladder decompressed did allow for visualization of additional nodular adenoma requiring resection, and I continued the resection until a smooth continuous channel had been created from the verumontanum into the bladder. At this point, I ensured all prostate chips were removed by direct vision from within his bladder, and with his bladder completely decompressed, I carefully fulgurated any and all oozing vessels. Once completely hemostatic with his bladder completely decompressed, I then retrograde filled his bladder with saline and slowly backed out the scope, fulgurating any distal oozing vessels along the way. The scope was then removed, and I utilized a catheter guide to place a 24 Honduran three-way Carias catheter into his bladder with ease. The catheter guide was used because there was a slight degree of undermining at the bladder neck which likely occurred during a period of Ilich evacuation where the tip of the scope was still within the extended prostatic urethral length within the fossa causing a degree of disruption and undermining observed. I placed 30 cc of sterile water in the balloon, and the catheter was placed to slow drip CBI and the efflux of urine and fluid was completely clear. He was thus taken out of the lithotomy position, awakened from general anesthesia, transferred to a stretcher, and then transferred to the recovery room in good condition. Complications: None Discharge disposition: He will be discharged with a catheter and recommended to follow-up on either Saturday or Saturday for voiding trial in the urology clinic. He will continue the Levaquin previously prescribed, and if the voiding trial is conducted on Saturday instead of Saturday, an additional dose of Levaquin may be given at that time, as he may be out of the prescription on or Saturday of this week. He also is given a prescription for Lovenox to take as follows: -40 mg subcu every 24 hours x 7 days, starting on 02/08/2023, in the early a.m. prior to coming into the clinic for his voiding trial, if it will be done on Saturday -80 mg subcu every 24 hours x 7 days, starting on 02/15/2023. He will require home care set up to administer the Lovenox injections because he is not comfortable administering them himself. He has a preferred home care agency that he has worked with in the past. The Lovenox should be immediately held x 24 hours if his urine becomes more than light pink. He may resume his Xarelto 2.5 mg once daily on 02/22/2023, as long as his urine does not become bloody with the prior Lovenox treatments. If his urine remains light pink to clear by 02/26/2023, he can go back to twice daily and Xarelto 2.5 mg dosing. Follow-up with me in about 3 months unless issues arise sooner, and he will be due for cystoscopy relative to his known bladder cancer.
[2023-02-05 19:55] VITALS: BP 168/77; TEMP 97; O2SAT 100
[2023-02-06] MEDS ORDERED: OXYBUTYNIN ER 5 MG TAB PO SCH (09:00)
--- NOTE | 2023-02-06 09:13 | P.PN ---
Date of Service: 02/05/23 only used 150 mcg of fentanyl (3 ml), pulled 200 mcg (4 ml) from cysto pyxis for case. Wasted 50 mcg (1 ml) with [facility] Jayden Douhgerty on 02/06/23 at 0912 as patient's profile was no longer accessible on pyxis.
== END 2023-02-05 19:45 | disposition home or self-care (01) ==
LOC: OR 11:26
PROVIDERS: ATTEND Urology
PROC: 0VT08ZZ Resection of Prostate, Via Natural or Artificial Opening Endoscopic (ICD-10-PCS; principal; 2023-02-05 13:00)
DX: N40.1 Benign prostatic hyperplasia with lower urinary tract symptoms (principal); N13.8 Other obstructive and reflux uropathy; R39.14 Feeling of incomplete bladder emptying; R33.8 Other retention of urine; I25.10 Atherosclerotic heart disease of native coronary artery without angina pectoris; I12.9 Hypertensive chronic kidney disease with stage 1 through stage 4 chronic kidney disease, or unspecified chronic kidney disease; E11.22 Type 2 diabetes mellitus with diabetic chronic kidney disease; N18.30 Chronic kidney disease, stage 3 unspecified; N52.9 Male erectile dysfunction, unspecified; K21.9 Gastro-esophageal reflux disease without esophagitis; E78.00 Pure hypercholesterolemia, unspecified; Z85.51 Personal history of malignant neoplasm of bladder; Z85.54 Personal history of malignant neoplasm of ureter; Z95.5 Presence of coronary angioplasty implant and graft; Z87.891 Personal history of nicotine dependence; Z79.899 Other long term (current) drug therapy; Z88.2 Allergy status to sulfonamides; Z88.8 Allergy status to other drugs, medicaments and biological substances
CPT/HCPCS: 93005; 85025; 87086; 80048; 36415; 85610; 82947 ×2; 88305; 71046; 52601; J2704; J2001; J1580; J3010 ×2; J2405; J0290; J7030 ×3; 87088